=== PATIENT | female | born 1960 | race African-American/Black ===

== ENCOUNTER 2023-03-26 01:00 | Emergency (ER) | payer SELFPAY ==
[2023-03-26] MEDS ORDERED: HYDROCODONE/APAP 7.5/325 MG TAB ONE (01:32)
[2023-03-26] MEDS ORDERED: dexAMETHasone 10 MG/ML VIAL ONE (01:32)
--- NOTE | 2023-03-26 02:13 | EDPHYS ---
Physician Documentation [facility] Name: Janice Villegas Age: 62 yrs Sex: Female : 1960 Arrival Date: 03/26/2023 Time: 01:00 Bed IW3 Private MD: ED Physician Rajesh Mariscal HPI: 03/26 01:18 This 62 yrs old Black Female presents to ER via Ambulatory with complaints of Arm Pain. kb 01:18 Pt is a 62 year old female with no medical history that developed right hand/wrist pain kb at 2130. Denies injury or trauma. States pain radiates up arm. Increased pain with movement and palpation. . Historical: - Allergies: 01:14 No Known Allergies; bp - Home Meds: 01:14 None [Active]; bp - PMHx: 01:14 None; bp - Immunization history:: Adult Immunizations up to date. - Social history:: Smoking status: Patient denies any tobacco usage or history of. ROS: 01:16 Constitutional: Negative for fever, chills, and weight loss, kb 01:16 MS/extremity: Positive for decreased range of motion, pain, tenderness, of the right hand, 01:16 All other systems are negative, Exam: 01:16 Constitutional: This is a well developed, well nourished patient who is awake, alert, kb and in no acute distress. Head/Face: Normocephalic, atraumatic. ENT: Moist Mucous membranes Respiratory: Respirations even and unlabored. No increased work of breathing. Talking in full sentences Skin: Warm, dry with normal turgor. Normal color. Neuro: Awake and alert, GCS 15, oriented to person, place, time, and situation. Moves all extremities. Normal gait. 01:16 Musculoskeletal/extremity: Extremities: grossly normal except: noted in the right hand: decreased ROM, pain, swelling, tenderness, ROM: limited active range of motion due to pain, in the right hand, Circulation is intact in all extremities. Sensation intact. Vital Signs: 01:13 BP 144 / 87; Pulse 73; Resp 16; Temp 97.7; Pulse Ox 100% ; Weight 81.65 kg; Height 5 bp ft. 2 in. ; 01:13 Body Mass Index 32.92 (81.65 kg, 157.48 cm) bp MDM: 01:07 Patient medically screened. kb 01:18 Differential diagnosis: closed fracture, contusion, tendonitis, sprain, carpal tunnel. kb Data reviewed: vital signs, nurses notes. 02:11 Independent interpretation of the following test(s) in the Emergency Department X-Ray: kb My interpretation is hand x-ray interpreted by me, no acute fracture. Counseling: I had a detailed discussion with the patient and/or guardian regarding the historical points, exam findings, and any diagnostic results supporting the discharge/admit diagnosis, radiology results, the need for outpatient follow up, a family practitioner, to return to the emergency department if symptoms worsen or persist or if there are any questions or concerns that arise at home. 03/26 01:15 Order name: Hand Right 3 View XRAY kb Administered Medications: 01:31 Drug: Dexamethasone IM 10 mg IM once Route: IM; Site: right deltoid; bp 02:21 Follow up: Response: No adverse reaction bp 01:31 Drug: Hydrocodone-Acetaminophen PO (7.5 mg-325 mg) 1 tabs PO once Route: PO; bp 02:21 Follow up: Response: No adverse reaction bp Disposition Summary: 03/26/23 02:12 Discharge Ordered Notes: Location: Home kb Condition: Stable kb Diagnosis - Carpal tunnel syndrome, right upper limb kb Followup: kb - With: Emergency Department - When: As needed - Reason: Worsening of condition Followup: kb - With: Private Physician - When: 2 - 3 days - Reason: Recheck today's complaints, Continuance of care, Re-evaluation by your physician Discharge Instructions: - Discharge Summary Sheet kb - Carpal Tunnel Syndrome, [id number] kb Forms: - Medication Reconciliation Form kb - Thank You Letter kb - Antibiotic Education kb - Prescription Opioid Use kb - Patient Portal Instructions kb - Leadership Thank You Letter kb Prescriptions: - Prednisone 20 mg Oral Tablet - take 1 tablet ORAL route once daily for 5 days; 5 tablet; Refills: 0, Product kb Selection Permitted - Diclofenac Sodium 75 mg Oral tablet, delayed release (enteric coated) - take 1 tablet ORAL route 2 times per day As needed; 30 tablet; Refills: 0, kb Product Selection Permitted Signatures: Dispatcher [employer] Bia Valdes, HAYLEE-C HAYLEE-Eugenio Breen, RN RN bp
--- NOTE | 2023-03-26 02:13 | ER ---
Nurse's Notes [facility] Name: Janice Villegas Age: 62 yrs Sex: Female : 1960 Arrival Date: 03/26/2023 Time: 01:00 Bed IW3 Private MD: Diagnosis: Carpal tunnel syndrome, right upper limb Presentation: 03/26 01:13 Chief complaint: Patient states: R HAND SWELLING/PAIN SINCE 2229. Coronavirus screen: bp At this time, the client does not indicate any symptoms associated with coronavirus-19. Ebola Screen: No symptoms or risks identified at this time. Initial Sepsis Screen: Does the patient meet any 2 criteria? No. Patient's initial sepsis screen is negative. Does the patient have a suspected source of infection? No. Patient's initial sepsis screen is negative. Risk Assessment: Do you want to hurt yourself or someone else? Patient reports no desire to harm self or others. Onset of symptoms was March 25, 2023 at 22:30. 01:13 Method Of Arrival: Ambulatory bp 01:13 Acuity: REKHA 4 bp Triage Assessment: 01:14 General: Appears uncomfortable, Behavior is calm, cooperative, appropriate for age. bp Pain: Complains of pain in right hand. Historical: - Allergies: 01:14 No Known Allergies; bp - Home Meds: 01:14 None [Active]; bp - PMHx: 01:14 None; bp - Immunization history:: Adult Immunizations up to date. - Social history:: Smoking status: Patient denies any tobacco usage or history of. Screenin:15 [facility] ED Fall Risk Assessment (Adult) History of falling in the last 3 months, bp including since admission No falls in past 3 months (0 pts). Abuse screen: Denies threats or abuse. Denies injuries from another. Nutritional screening: No deficits noted. Tuberculosis screening: No symptoms or risk factors identified. Vital Signs: 01:13 BP 144 / 87; Pulse 73; Resp 16; Temp 97.7; Pulse Ox 100% ; Weight 81.65 kg; Height 5 bp ft. 2 in. ; 01:13 Body Mass Index 32.92 (81.65 kg, 157.48 cm) bp ED Course: 01:04 Patient arrived in ED. gm2 01:07 Bia Lujan FNP-C is PHCP. kb 01:07 Rajesh Mariscal MD is Attending Physician. kb 01:13 Eugenio German, RN is Primary Nurse. bp 01:14 Triage completed. bp 01:14 Arm band placed on. bp 01:15 Patient has correct armband on for positive identification. bp 01:32 Hand Right 3 View XRAY In Process Unspecified. EDMS 02:20 No provider procedures requiring assistance completed. Patient did not have IV access bp during this emergency room visit. Administered Medications: 01:31 Drug: Dexamethasone IM 10 mg IM once Route: IM; Site: right deltoid; bp 02:21 Follow up: Response: No adverse reaction bp 01:31 Drug: Hydrocodone-Acetaminophen PO (7.5 mg-325 mg) 1 tabs PO once Route: PO; bp 02:21 Follow up: Response: No adverse reaction bp Outcome: 02:12 Discharge ordered by MD. kb 02:20 Discharged to home ambulatory, with family, bp 02:20 Condition: stable 02:20 Discharge instructions given to patient, Instructed on discharge instructions, follow up and referral plans. medication usage, Demonstrated understanding of instructions, follow-up care, medications, Prescriptions given X 2, 02:22 Patient left the ED. bp Signatures: Dispatcher [employer] EDMS Bia Lujan FNP-C CYBER REVERSE ENGINEER-Ckb Eugenio German, RN RN bp Li Larose gm2 Corrections: (The following items were deleted from the chart) 01:16 01:13 BP 144 / 87; Pulse 73bpm; Resp 16bpm; Pulse Ox 100%; Temp 97.7F; bp bp
[2023-03-26 02:42] VITALS: BP 144/87; TEMP 97.7; O2SAT 100
--- NOTE | 2023-03-27 14:37 | RAD REPORT ---
EXAM DESCRIPTION: RAD - Hand Right 3 View - 03/26/2023 1:30 am CLINICAL HISTORY: PAIN COMPARISON: None. TECHNIQUE: XR HAND 3 OR MORE VIEWS RIGHT 03/26/2023 1:15 AM PROCESS SAFETY SPECIALIST FINDINGS: There is no fracture. Joint spaces are preserved. Soft tissues are unremarkable. IMPRESSION: No acute osseous findings. Electronically signed by: Derek Whyte MD 03/26/2023 04:28 AM PROCESS SAFETY SPECIALIST Due to temporary technical issues with the PACS/Fluency reporting system, reports are being signed by the in house radiologists without review as a courtesy to insure prompt reporting. The interpreting radiologist is fully responsible for the content of the report.
== END 2023-03-26 02:22 | disposition home or self-care (01) ==
LOC: ER 01:00
DX: G56.01 Carpal tunnel syndrome, right upper limb (principal)
CPT/HCPCS: 96372; 99284; J1100